=== PATIENT | female | born 1935 | race Caucasian/White ===

== ENCOUNTER 2018-02-20 09:45 | Outpatient (RCR) | payer MEDICARE, OTHER | END 2018-03-14 | disposition home or self-care (01) | LOC: PTY 09:45 | DX: M47.816 Spondylosis without myelopathy or radiculopathy, lumbar region (principal); M46.96 Unspecified inflammatory spondylopathy, lumbar region | CPT/HCPCS: 97035; 97110; 97140; 97161; G8978; G8979 ==